=== PATIENT | male | born 1975 | race Caucasian/White ===

== ENCOUNTER 2016-12-12 20:56 | Emergency (ER) | payer BC, OTHER ==
[2016-12-12] MEDS ORDERED: Sodium Chloride 0.9% 10 ML Syringe FLUSH PRN (21:08)
[2016-12-12] MEDS ORDERED: Ondansetron 4 MG/2 ML SDV IVPUSH ONE (21:08)
[2016-12-12] MEDS ORDERED: Sodium Chloride 0.9% 2.5 ML Syringe FLUSH PRN (21:08)
[2016-12-12] MEDS ORDERED: HYDROmorphone 2 MG/ML Syringe IVPUSH ONE (21:09)
--- NOTE | 2016-12-12 21:27 | EDM.PDOC ---
ED HPI Trauma - General Chief Complaint: Lower Extremity Injury/Pain Stated Complaint: FALL/PAIN LT FOOT/ANKLE Time Seen by Provider: 12/12/16 21:05 Source: Reports: Patient, Family History Limitations: Reports: No limitations - History of Present Illness INITIAL COMMENTS - FREE TEXT/NARRATIVE: HISTORY AND PHYSICAL: [41-year-old male presenting after falling on the ice twisting his left ankle] History of Present Illness: [Is prior to presenting to the ED by EMS] Review of Systems: As per history of present illness and below otherwise all systems reviewed and negative. Past medical history: As per history of present illness and as reviewed below otherwise noncontributory. Surgical history: As per history of present illness and as reviewed below otherwise noncontributory. Social history: No reported history of drug or alcohol abuse. Family history: As per history of present illness and as reviewed below otherwise noncontributory. Physical exam: Alert and oriented male HEENT: Atraumatic, normocehpalic, pupils reactive, negative for conjunctival pallor or scleral icterus, mucous membranes moist, neck supple, nontender, trachea midline. Lungs: Clear to auscultation, breath sounds equal bilaterally, chest non tender. Heart: S1S2, regular, negative for clicks, rubs, or JVD. Abdomen: Soft, nondistended, nontender. Negative for masses or hepatossplenmegaly. Negative for costovertebral tenderness. Extremities: Left ankle edematous lateralmedial malleolus, negative for cords or calf pain. pedal pulse present . rom to toes present. Neurovascular unremarkable. Neuro: Awake, alert, oriented. Cranial nerves II through XII unremarkable. Cerebellum unremarkable. Motor and sensory unremarkable throughout. Exam nonfocal. Zofran given IV then Dilaudid 1 mg. Patient has not experienced any nausea or vomiting. He does have some pain relief. Dr. Denton was here and discussed the case with him. Dr. Denton then notified [facility] speaking to Dr. Thomas who accepted the patient for transfer. The discussed this case with the patient and his family who are in agreement to this transfer of care. Diagnostics: [xray to left ankle] Therapeutics: [splint] Impression: [left ankle fracture] Plan: [transfer to [facility] at [place], [place] as no orthopedic coverage available here] Definitive disposition and diagnosis as appropriate pending reevaluation and review of above. Occurred When: just prior to arrival Occurred Where: other (at firemans meeting) Method of Injury: fall Severity: severe Pain/Injury Location: Reports: lower extremity, left Consciousness: Reports: no loss of consciousness, remembers incident, remembers coming to hosp Associated Symptoms: Reports: no other symptoms Allergies/ADRs: Allergies morphine Adverse Reaction (Verified 09/12/16 20:59) severe nausea and vomiting Home Medications: Ambulatory Orders . [No Known Home Meds] 09/12/16 [Confirmed 09/12/16] Past Medical History HEENT History: Reports: None Cardiovascular History: Reports: None Respiratory History: Reports: None Gastrointestinal History: Reports: None - Infectious Disease History Infectious Disease History: Reports: Mumps - Past Surgical History HEENT Surgical History: Reports: LASIK Dermatological Surgical History: Reports: Skin graft Social & Family History - Family History Family Medical History: Noncontributory - Tobacco Use Smoking Status *Q: Never Smoker - Caffeine Use Caffeine Use: Reports: Coffee - Recreational Drug Use Recreational Drug Use: No Review of Systems - Review of Systems Review Of Systems: ROS reveals no pertinent complaints other than HPI. Trauma Exam - Physical Exam Exam: See Below (see dictation) Course - Vital Signs Last Recorded V/S: Last Vital Signs Temp 37.6 C 12/12/16 21:53 Pulse 67 12/12/16 21:53 Resp 16 12/12/16 21:53 BP 105/62 12/12/16 21:53 Pulse Ox 98 12/12/16 21:53 - Orders/Labs/Meds Orders: Active Orders 24 hr Category Date Time Status Ankle Min 3V Lt [CR] Stat Exams 12/12/16 21:08 Taken Sodium Chloride 0.9% [Saline Flush] Med 12/12/16 21:08 Active 10 ml FLUSH ASDIRECTED PRN Sodium Chloride 0.9% [Saline Flush] Med 12/12/16 21:08 Active 2.5 ml FLUSH ASDIRECTED PRN Saline Lock Insert [OM.PC] Stat Oth 12/12/16 21:08 Ordered Medication Orders Sodium Chloride (Saline Flush) 10 ml FLUSH ASDIRECTED PRN PRN Reason: Keep Vein Open Sodium Chloride (Saline Flush) 2.5 ml FLUSH ASDIRECTED PRN PRN Reason: Keep Vein Open Labs: Laboratory Tests 12/12/16 12/12/16 Range/Units 21:18 21:18 WBC 5.58 (4.0-11.0) K/uL RBC 4.81 (4.50-5.90) M/uL Hgb 14.5 (13.0-17.0) g/dL Hct 42.7 (38.0-50.0) % MCV 88.8 (80.0-98.0) fL MCH 30.1 (27.0-32.0) pg MCHC 34.0 (31.0-37.0) g/dL RDW Std Deviation 40.2 (28.0-62.0) fl RDW Coeff of Mikaela 13 (11.0-15.0) % Plt Count 141 L (150-400) K/uL MPV 10.50 (7.40-12.00) fL Neut % (Auto) 56.4 (48.0-80.0) % Lymph % (Auto) 31.9 (16.0-40.0) % Luna % (Auto) 9.9 (0.0-15.0) % Eos % (Auto) 1.6 (0.0-7.0) % Baso % (Auto) 0.2 (0.0-1.5) % Neut # 3.2 (1.4-5.7) K/uL Lymph # 1.8 (0.6-2.4) K/uL Luna # 0.6 (0.0-0.8) K/uL Eos # 0.1 (0.0-0.7) K/uL Baso # 0.0 (0.0-0.1) K/uL Nucleated RBC % 0.0 /100WBC Nucleated RBCs # 0 K/uL Sodium 140 (136-146) mmol/L Potassium 4.1 (3.5-5.1) mmol/L Chloride 107 (98-110) mmol/L Carbon Dioxide 24 (21-31) mmol/L BUN 13 (6.0-23.0) mg/dL Creatinine 1.0 (0.6-1.5) mg/dL Est Cr Clr Drug Dosing 114.17 mL/min Estimated GFR (MDRD) > 60.0 ml/min Glucose 98 (60-110) mg/dL Calcium 8.9 (8.8-10.8) mg/dL Total Bilirubin 0.3 (0.1-1.5) mg/dL AST 31 (5-40) IU/L ALT 53 (8-54) IU/L Alkaline Phosphatase 71 (40-150) Total Protein 7.3 (6.0-8.0) g/dL Albumin 4.1 (3.5-5.0) g/dL Globulin 3.2 (2.0-3.5) g/dL Albumin/Globulin Ratio 1.3 (1.3-2.8) Meds: Medications Generic Name Dose Route Start Last Admin Trade Name Freq PRN Reason Stop Dose Admin Sodium Chloride 10 ml 12/12/16 21:08 Saline Flush FLUSH ASDIRECTED PRN Keep Vein Open Sodium Chloride 2.5 ml 12/12/16 21:08 Saline Flush FLUSH ASDIRECTED PRN Keep Vein Open Discontinued Medications Generic Name Dose Route Start Last Admin Trade Name Freq PRN Reason Stop Dose Admin Hydromorphone HCl 1 mg 12/12/16 21:09 12/12/16 21:20 Dilaudid IVPUSH 12/12/16 21:10 1 mg ONETIME ONE Administration Ondansetron HCl 4 mg 12/12/16 21:08 12/12/16 21:20 Zofran IVPUSH 12/12/16 21:09 4 mg ONETIME ONE Administration Departure - Departure Time of Disposition: 22:18 Disposition: DC/Tfer to Acute Hospital 02 Condition: good Clinical Impression: Fracture of ankle Ankle dislocation Qualifiers: Encounter type: initial encounter Laterality: left Qualified Code(s): S93.05XA - Dislocation of left ankle joint, initial encounter Forms: ED Department Discharge - My Orders Last 24 Hours: My Active Orders 12/12/16 21:08 Ankle Min 3V Lt [CR] Stat Sodium Chloride 0.9% [Saline Flush] 10 ml FLUSH ASDIRECTED PRN Sodium Chloride 0.9% [Saline Flush] 2.5 ml FLUSH ASDIRECTED PRN Saline Lock Insert [OM.PC] Stat - Assessment/Plan Last 24 Hours: My Active Orders 12/12/16 21:08 Ankle Min 3V Lt [CR] Stat Sodium Chloride 0.9% [Saline Flush] 10 ml FLUSH ASDIRECTED PRN Sodium Chloride 0.9% [Saline Flush] 2.5 ml FLUSH ASDIRECTED PRN Saline Lock Insert [OM.PC] Stat
[2016-12-12 21:55] LABS: CHLORIDE,CL 107 mmol/L (98-110); SODIUM,NA 140 mmol/L (136-146)
[2016-12-12 23:10] VITALS: BP 140/80
--- NOTE | 2016-12-15 19:43 | CR ---
EXAM DATE: 12/12/16 PATIENT'S AGE: 41 Patient: MARIEL HERMAN Facility: [place], [place] Site . Site : [id number] Study: XRay Extremity Left [id number] 9:46:52 PM Ordering Physician: Doctor Funes Final Report: HISTORY: Ankle injury. FINDINGS: Three views of the left ankle demonstrate an oblique slightly comminuted fracture of the distal fibular diaphysis. There is 4 mm of dorsal and lateral displacement of the major distal fracture fragment. There is marked widening of the medial mortise. There are 4 tiny calcific densities seen in the joint space. It is difficult to determine if they are from the medial tibia or the talus. No donor site is seen. Base of the 5th metatarsal is intact. IMPRESSION: 1. Oblique mildly displaced slightly comminuted fracture of the distal fibular diaphysis. 2. Ligamentous injury with marked widening of the medial mortise. There are 4 tiny calcific densities seen in this joint space suspicious for tiny avulsion fracture fragments. The donor site is not apparent. Dictated by Le Diallo MD @ 12/12/2016 10:06:19 PM Dictated by: Le Diallo MD @ 12/12/2016 22:06:30 (Electronic Signature) Report Signed by Proxy and Original Signed Document filed in the Medical Record [facility]
== END 2016-12-12 23:00 ==
LOC: MW.ED 20:56
DX: S93.05XA Dislocation of left ankle joint, initial encounter (principal); Z88.5 Allergy status to narcotic agent; W19.XXXA Unspecified fall, initial encounter
CPT/HCPCS: 36415; 73610; 80053; 85025; 96374; 96375; 99285; J1170; J2405